=== PATIENT | male | born 1970 | race Caucasian/White ===

== ENCOUNTER 2016-06-08 22:37 | Emergency (ER) | payer OTHER ==
[2016-06-08] MEDS ORDERED: IBUPROFEN 600 MG TAB PO ONE (22:45)
[2016-06-08 22:49] VITALS: BP 154/84; PULSE 96; RESP 16; TEMP 100.1; O2SAT 96
--- NOTE | 2016-06-08 23:00 | UCPHY ---
H & P Time Seen by Provider: 06/08/16 22:48 Patient Type: New HPI/ROS: 45-year-old male presents complaining of cold runny nose discharge from both eyes as well as fever for couple days. His eye discharge began today He denies wearing contacts Review of systems As per HPI General positive fever positive chills no weakness HEENT no eye pain positive eye discharge. Positive eye redness, no sore throat Respiratory positive cough, no shortness of breath Cardiac no chest pain, no peripheral edema GI no abdominal pain, no diarrhea, no constipation, no nausea, no vomiting no flank pain, no hematuria, no dysuria Musculoskeletal no myalgias, no joint pain Heme no easy bruising, no easy bleeding Endo no polyuria, no polydipsia Skin no rashes, no pruritus Neuro no syncope, no dizziness, no headaches Psych is no suicidal ideation, no homicidal ideation Past Medical/Surgical History: Noncontributory Social History: No alcohol or drugs Smoking Status: Never smoked Physical Exam: Alert and oriented nontoxic appearance, no acute distress afebrile Atraumatic normocephalic Extraocular muscles intact, anicteric Conjunctival erythema bilaterally with off-white exudate bilaterally Fluorescein negative for uptake bilaterally, no pooling no ocular ulcer no foreign body visualized Nares mild yellowish discharge Oropharynx mild erythema no tonsillar swelling no exudate no uvular deviation, tolerating own secretions Neck supple no lymphadenopathy Lungs clear to auscultation bilaterally Heart regular rate and rhythm Abdomen normoactive bowel sounds soft nontender Extremities no cyanosis clubbing or edema Skin no rash Constitutional: Initial Vital Signs Temperature (C) 37.8 C 06/08/16 22:47 Heart Rate 96 06/08/16 22:47 Respiratory Rate 16 06/08/16 22:47 Blood Pressure 154/84 H 06/08/16 22:47 O2 Sat (%) 96 06/08/16 22:47 O2 Delivery Mode Room Air Allergies/Adverse Reactions: No Allergies [NKA] Allergy (Verified 06/08/16 23:08) nka Allergy (Uncoded 06/08/16 23:08) Home Medications: Medication Instructions Recorded Amoxicillin 500 mg PO TID 7 Days 06/08/16 Medical Decision Making ED Course/Re-evaluation: Patient seen and evaluated for bilateral eye discharge, cold symptoms cough fevers chills Impression Bilateral conjunctivitis URI/bronchitis The plan Amoxicillin 500 mg p.o. three times daily times 7 days Tobramycin ophthalmic drops 2 drops four times daily x1 week - Data Points Laboratory Results: 06/08/16 22:45 Influenza Typ A,B (DFA) NEGATIVE FOR FLU (NEGATIVE) Medications Given: Discontinued Medications Amoxicillin (Amoxil Chewable 250 Mg Prepack#4) 1 btl TAKEHOME EDNOW ONE PRN Reason: Protocol Stop: 06/08/16 23:06 Last Admin: 06/08/16 23:18 Dose: 1 btl Ibuprofen (Motrin) 600 mg PO EDNOW ONE Stop: 06/08/16 22:46 Last Admin: 06/08/16 22:47 Dose: 600 mg Tobramycin (Tobrex 0.3% Opht Drops Prepack) 1 btl TAKEHOME EDNOW ONE Stop: 06/08/16 23:06 Last Admin: 06/08/16 23:19 Dose: 1 btl Departure - Departure Disposition: Home, Routine, Self-Care Clinical Impression: Acute conjunctivitis, bilateral, Upper respiratory tract infection Condition: Good Instructions: Tobramycin (Into the eye), Amoxicillin (By mouth), Upper Respiratory Infection (ED), Acute Bronchitis (ED), Conjunctivitis (ED) Additional Instructions: tobramycin eye drops, 2 drops to each eye 4 times a day Referrals: RADHA GARCIA [Primary Care Provider] - As per Instructions Prescriptions: Amoxicillin 500 mg PO TID 7 Days - PQRS PQRS Measurement: na
[2016-06-08] MEDS ORDERED: TOBRAMYCIN 0.3% SOLN PREPACK OPHT.BTL TAKEHOME ONE (23:05)
[2016-06-08] MEDS ORDERED: AMOXICILLIN 250 MG PREPACK#4 BTL TAKEHOME ONE (23:05)
== END 2016-06-08 23:22 | disposition home or self-care (01) ==
LOC: CED 22:37
DX: J06.9 Acute upper respiratory infection, unspecified (principal); H10.33 Unspecified acute conjunctivitis, bilateral
CPT/HCPCS: 87400-PO; 99203-PO; G0463-PO